=== PATIENT | female | born 1995 | race American Indian/Alaskan Native ===

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

== ENCOUNTER 2017-01-15 04:12 | Emergency (ER) | payer MEDICAID, OTHER ==
[2017-01-15] MEDS ORDERED: MOTRIN PO ONE (08:26)
--- NOTE | 2017-01-15 08:29 | Emergency Department Report ---
- General Chief Complaint: Upper Respiratory Infection Stated Complaint: FLU SX Time Seen by Provider: 01/15/17 07:40 Source: patient Mode of arrival: Ambulatory Limitations: No Limitations - History of Present Illness Initial Comments: Patient presents with flulike symptoms times one day including cough, congestion , fever subjective, body aches, headache. Denies vomiting, diarrhea but does admit to nausea. She has been around sick contacts that test positive for flu B. Denies shortness of breath, chest pain. MD Complaint: fever, cough, nasal congestion -: Sudden Severity: severe Severity scale (0 -10): 10 Quality: aching Consistency: constant Improves With: nothing Context: sick contacts Associated Symptoms: fever, chills, myalgias, headache, nasal congestion, cough , nausea - Related Data Previous Rx's Medication Instructions Recorded Last Taken Type Acyclovir [Zovirax Tab] 400 mg PO Q8H #30 tab 12/16/16 Unknown Rx Acyclovir/Hydrocortisone [Xerese 1 applicatio TP 5XD #1 tube 12/16/16 Unknown Rx 5%-1% Cream] Diphenhydramine HCl [Benadryl 25 mg PO DAILY #25 tablet 12/16/16 Unknown Rx Allergy TAB] Dextromethorphan HBr [Tussin Cough] 15 mg PO TID #60 liquid 01/15/17 Unknown Rx Ibuprofen [Motrin 800 MG tab] 800 mg PO Q8HR PRN #20 tablet 01/15/17 Unknown Rx Ondansetron [Zofran Odt] 4 mg PO BID #10 tab.rapdis 01/15/17 Unknown Rx Allergies Allergy/AdvReac Type Severity Reaction Status Date / Time acyclovir Allergy Rash Verified 12/04/16 14:02 ED Review of Systems ROS: Stated complaint: FLU SX Other details as noted in HPI Constitutional: denies: chills, fever Eyes: denies: eye pain, eye discharge, vision change ENT: congestion Respiratory: cough Cardiovascular: denies: chest pain, palpitations Gastrointestinal: nausea. denies: abdominal pain, diarrhea Genitourinary: denies: urgency, dysuria, discharge Musculoskeletal: myalgia. denies: back pain, joint swelling, arthralgia Skin: denies: rash, lesions Neurological: headache. denies: weakness, paresthesias Psychiatric: denies: anxiety, depression ED Past Medical Hx - Past Medical History Previous Medical History?: No - Surgical History Past Surgical History?: No - Social History Smoking Status: Current Every Day Smoker Substance Use Type: Alcohol - Medications Home Medications: Home Medications Medication Instructions Recorded Confirmed Last Taken Type Acyclovir [Zovirax Tab] 400 mg PO Q8H #30 tab 12/16/16 Unknown Rx Acyclovir/Hydrocortisone [Xerese 1 applicatio TP 5XD #1 tube 12/16/16 Unknown Rx 5%-1% Cream] Diphenhydramine HCl [Benadryl 25 mg PO DAILY #25 tablet 12/16/16 Unknown Rx Allergy TAB] Dextromethorphan HBr [Tussin Cough] 15 mg PO TID #60 liquid 01/15/17 Unknown Rx Ibuprofen [Motrin 800 MG tab] 800 mg PO Q8HR PRN #20 tablet 01/15/17 Unknown Rx Ondansetron [Zofran Odt] 4 mg PO BID #10 tab.rapdis 01/15/17 Unknown Rx ED Physical Exam - General Limitations: No Limitations General appearance: alert, in no apparent distress - Head Head exam: Present: atraumatic, normocephalic - Eye Eye exam: Present: normal appearance, PERRL - ENT ENT exam: Present: mucous membranes moist, TM's normal bilaterally - Expanded ENT Exam Expanded Mouth exam: Present: normal external inspection Teeth exam: Present: normal inspection Throat exam: Positive: normal inspection - Neck Neck exam: Present: normal inspection, full ROM. Absent: tenderness, lymphadenopathy - Respiratory Respiratory exam: Present: normal lung sounds bilaterally. Absent: respiratory distress, wheezes, rales, rhonchi, stridor - Cardiovascular Cardiovascular Exam: Present: regular rate, normal rhythm. Absent: systolic murmur, diastolic murmur, rubs, gallop - GI/Abdominal GI/Abdominal exam: Present: soft, normal bowel sounds. Absent: tenderness - Neurological Exam Neurological exam: Present: alert, oriented X3 - Psychiatric Psychiatric exam: Present: normal affect, normal mood - Skin Skin exam: Present: warm, dry, intact, normal color. Absent: rash ED Course Vital Signs 01/15/17 01/15/17 06:50 07:09 Temperature 98.7 F 98.8 F Pulse Rate 57 L 94 H Respiratory 18 Rate Blood Pressure 124/76 Blood Pressure 115/74 [Right] O2 Sat by Pulse 96 100 Oximetry - Reevaluation(s) Reevaluation #1: 01/15/17 08:29 Patient presents with flulike symptoms. Ibuprofen 800 mg given for body aches. Awaiting flu swab results. ED Medical Decision Making - Medical Decision Making Patient presents with flulike symptoms, ibuprofen 800 mg given for body aches. Flu swab returned negative. Diagnosis is viral syndrome. I will give her Zofran 4 mg twice a day for nausea, dextromethorphan for her cough, and ibuprofen for body aches. - Differential Diagnosis flu, URI, UTI, pneumonia Critical Care Time: No Critical care attestation.: If time is entered above; I have spent that time in minutes in the direct care of this critically ill patient, excluding procedure time. ED Disposition Clinical Impression: Viral syndrome, Cough, Body aches, Nausea Disposition: DISCHARGED TO HOME OR SELFCARE Is pt being admited?: No Does the pt Need Aspirin: No Condition: Stable Instructions: Viral Syndrome (ED), Dextromethorphan/Guaifenesin/Phenylephrine ( By mouth), Cold Symptoms (ED), Acute Nausea and Vomiting (ED) Additional Instructions: Return to the ED if nausea/vomiting uncontrolled with medications, symptoms worsen. Prescriptions: Dextromethorphan HBr [Tussin Cough] 15 mg PO TID #60 liquid Ibuprofen [Motrin 800 MG tab] 800 mg PO Q8HR PRN #20 tablet PRN Reason: body aches Ondansetron [Zofran Odt] 4 mg PO BID #10 tab.rapdis Referrals: PRIMARY CARE, [Primary Care Provider] - 3-5 Days Forms: Work/School Release Form(ED) Time of Disposition: 08:49
[2017-01-15 09:12] VITALS: BP 96/58
== END 2017-01-15 09:11 | disposition home or self-care (01) ==
LOC: ED 04:12
DX: B34.9 Viral infection, unspecified (principal); M79.1 Myalgia; R11.0 Nausea; R05 Cough; F17.200 Nicotine dependence, unspecified, uncomplicated; Z88.8 Allergy status to other drugs, medicaments and biological substances
CPT/HCPCS: 87400; 99282

== ENCOUNTER 2017-01-16 14:14 | Emergency (ER) | payer MEDICAID, OTHER ==
[2017-01-16 16:48] LABS: Hematocrit 40.1 % (30.3-42.9); Hemoglobin 13.2 gm/dl (10.1-14.3); Mean Corpuscular HGB Conc 33 % (30-34); Mean Corpuscular Hemoglobin 29 pg (28-32); Mean Corpuscular Volume 87 fl (79-97); Platelet Count 206 K/mm3 (140-440); Red Blood Count 4.62 M/mm3 (3.65-5.03); Red Cell Distribution Width 12.8 % (13.2-15.2)
[2017-01-16 17:01] LABS: Anion Gap 19 mmol/L; Blood Urea Nitrogen 7 mg/dL (7-17); Calcium 8.8 mg/dL (8.4-10.2); Carbon Dioxide 23 mmol/L (22-30); Chloride 98.7 mmol/L (98-107); Glucose 119 mg/dL (65-100); Potassium 3.6 mmol/L (3.6-5.0); Sodium 137 mmol/L (137-145)
[2017-01-16 18:28] LABS: Blastocytes % (Manual) 0 %
[2017-01-16 18:29] LABS: Basophils % (Manual) 0 % (0.0-1.8); Eosinophils % (Manual) 0 % (0.0-4.3)
[2017-01-16 18:30] LABS: Diff Status Complete; Large Platelets 1+; Platelet Estimate Consistent w Auto; RBC Morphology Normal
[2017-01-16 20:46] VITALS: BP 113/62
--- NOTE | 2017-01-16 22:00 | Emergency Department Report ---
HPI - General Chief Complaint: Fever Time Seen by Provider: 01/16/17 20:52 - HPI HPI: 21-year-old female presents today complaining of flulike symptoms 2 days. Patient was seen here yesterday and was negative for flu. She was sent home on Robitussin, Zofran and ibuprofen. Patient states that the medication is not working. Also complaining of headache, nausea, vomiting, body aches and cough associated chest pain. Tmax = 101.6. Denies shortness of breath. She states that she had been around sick contacts that tested positive for influenza B. ED Past Medical Hx - Past Medical History Previous Medical History?: No - Surgical History Past Surgical History?: No - Social History Smoking Status: Current Every Day Smoker - Medications Home Medications: Home Medications Medication Instructions Recorded Confirmed Last Taken Type Acyclovir [Zovirax Tab] 400 mg PO Q8H #30 tab 12/16/16 Unknown Rx Acyclovir/Hydrocortisone [Xerese 1 applicatio TP 5XD #1 tube 12/16/16 Unknown Rx 5%-1% Cream] Diphenhydramine HCl [Benadryl 25 mg PO DAILY #25 tablet 12/16/16 Unknown Rx Allergy TAB] Dextromethorphan HBr [Tussin Cough] 15 mg PO TID #60 liquid 01/15/17 Unknown Rx Ibuprofen [Motrin 800 MG tab] 800 mg PO Q8HR PRN #20 tablet 01/15/17 Unknown Rx Ondansetron [Zofran Odt] 4 mg PO BID #10 tab.rapdis 01/15/17 Unknown Rx Fluticasone [Flonase] 1 spray NS QDAY #1 bottle 01/16/17 Unknown Rx Promethazine /Codeine 5 ml PO Q6H PRN #100 ml 01/16/17 Unknown Rx [Phenergan/Codeine 6.25-10 mg/5 ml] ED Review of Systems ROS: Stated complaint: FLU SYMPTOMS Other details as noted in HPI Constitutional: fever. denies: chills, malaise Eyes: denies: eye pain ENT: congestion. denies: ear pain, throat pain Respiratory: cough. denies: shortness of breath, wheezing Cardiovascular: chest pain. denies: palpitations Endocrine: no symptoms reported Gastrointestinal: nausea, vomiting. denies: abdominal pain Neurological: headache. denies: weakness Physical Exam - Physical Exam Vital Signs: Vital Signs 01/16/17 01/16/17 15:55 20:45 Temperature 101.6 F H 99.8 F H Pulse Rate 116 H 99 H Respiratory 18 16 Rate Blood Pressure 123/76 Blood Pressure 113/62 [Right] O2 Sat by Pulse 100 98 Oximetry Physical Exam: GENERAL: The patient is well-developed and well-nourished. Patient is in NAD. HEAD: Normocephalic. Atraumatic. EYES: PERRL. EARS: External auditory canals and tympanic membranes clear; hearing grossly intact. NOSE: Normal nasal mucosa with no nasal discharge. THROAT: No erythema, swelling or exudates. NECK: Supple, nontender, without lymphadenopathy. CHEST/LUNGS: Clear to auscultation throughout. HEART/CARDIOVASCULAR: Regular rate and rhythm. ABDOMEN: Abdomen is soft, nontender. No guarding or rebound tenderness. EXTREMITIES: Peripheral pulses intact. Capillary refill less than 2 seconds. NEURO: Alert and oriented 3, normal gait, fluid speech, EOMs intact, normal facial sensation, strength exam 5/5 upper and lower extremities, GCS equals 15 ED Course Vital Signs 01/16/17 01/16/17 15:55 20:45 Temperature 101.6 F H 99.8 F H Pulse Rate 116 H 99 H Respiratory 18 16 Rate Blood Pressure 123/76 Blood Pressure 113/62 [Right] O2 Sat by Pulse 100 98 Oximetry ED Medical Decision Making - Lab Data Result diagrams: 01/16/17 16:25 01/16/17 16:25 Vital Signs 01/16/17 01/16/17 01/17/17 15:55 20:45 00:19 Temperature 101.6 F H 99.8 F H 99.7 F H Pulse Rate 116 H 99 H 99 H Respiratory 18 16 Rate Blood Pressure 123/76 Blood Pressure 113/62 [Right] O2 Sat by Pulse 100 98 Oximetry Lab Results 01/16/17 01/16/17 Range/Units 16:25 16:25 WBC 5.0 (4.5-11.0) K/mm3 RBC 4.62 (3.65-5.03) M/mm3 Hgb 13.2 (10.1-14.3) gm/dl Hct 40.1 (30.3-42.9) % MCV 87 (79-97) fl MCH 29 (28-32) pg MCHC 33 (30-34) % RDW 12.8 L (13.2-15.2) % Plt Count 206 (140-440) K/mm3 Add Manual Diff Complete Total Counted 100 Seg Neuts % (Manual) 69.0 (40.0-70.0) % Band Neutrophils % 1.0 % Lymphocytes % (Manual) 18.0 (13.4-35.0) % Reactive Lymphs % (Man) 0 % Monocytes % (Manual) 12.0 H (0.0-7.3) % Eosinophils % (Manual) 0 (0.0-4.3) % Basophils % (Manual) 0 (0.0-1.8) % Metamyelocytes % 0 % Myelocytes % 0 % Promyelocytes % 0 % Blast Cells % 0 % Nucleated RBC % Not Reportable Seg Neutrophils # Man 3.5 (1.8-7.7) K/mm3 Band Neutrophils # 0.1 K/mm3 Lymphocytes # (Manual) 0.9 L (1.2-5.4) K/mm3 Abs React Lymphs (Man) 0.0 K/mm3 Monocytes # (Manual) 0.6 (0.0-0.8) K/mm3 Eosinophils # (Manual) 0.0 (0.0-0.4) K/mm3 Basophils # (Manual) 0.0 (0.0-0.1) K/mm3 Metamyelocytes # 0.0 K/mm3 Myelocytes # 0.0 K/mm3 Promyelocytes # 0.0 K/mm3 Blast Cells # 0.0 K/mm3 WBC Morphology Not Reportable Hypersegmented Neuts Not Reportable Hyposegmented Neuts Not Reportable Hypogranular Neuts Not Reportable Smudge Cells Not Reportable Toxic Granulation Not Reportable Toxic Vacuolation Not Reportable Dohle Bodies Not Reportable Pelger-Huet Anomaly Not Reportable Shelly Rods Not Reportable Platelet Estimate Consistent w auto Clumped Platelets Not Reportable Plt Clumps, EDTA Not Reportable Large Platelets 1+ Giant Platelets Not Reportable Platelet Satelliting Not Reportable Plt Morphology Comment Not Reportable RBC Morphology Normal Dimorphic RBCs Not Reportable Polychromasia Not Reportable Hypochromasia Not Reportable Poikilocytosis Not Reportable Anisocytosis Not Reportable Microcytosis Not Reportable Macrocytosis Not Reportable Spherocytes Not Reportable Pappenheimer Bodies Not Reportable Sickle Cells Not Reportable Target Cells Not Reportable Tear Drop Cells Not Reportable Ovalocytes Not Reportable Helmet Cells Not Reportable [place] Bodies Not Reportable Kerkhoven Rings Not Reportable Buck Cells Not Reportable Bite Cells Not Reportable Crenated Cell Not Reportable Elliptocytes Not Reportable Acanthocytes (Spur) Not Reportable Rouleaux Not Reportable Hemoglobin C Crystals Not Reportable Schistocytes Not Reportable Malaria parasites Not Reportable Vincent Bodies Not Reportable Hem Pathologist Commnt No Sodium 137 (137-145) mmol/L Potassium 3.6 (3.6-5.0) mmol/L Chloride 98.7 (98-107) mmol/L Carbon Dioxide 23 (22-30) mmol/L Anion Gap 19 mmol/L BUN 7 (7-17) mg/dL Creatinine 0.7 (0.7-1.2) mg/dL Estimated GFR > 60 ml/min BUN/Creatinine Ratio 10.00 % Glucose 119 H (65-100) mg/dL Calcium 8.8 (8.4-10.2) mg/dL - Radiology Data Radiology results: report reviewed PROCEDURE: XR CHEST ROUTINE 2V TECHNIQUE: PA and lateral chest radiographs were obtained. CPT 68955 HISTORY: cough associated chest pain COMPARISON: No prior studies are available for comparison. FINDINGS: Heart: Normal contour. Mediastinum/Vessels: Normal contour. Lungs/Pleural space: No infiltrate, effusion, or pneumothorax. Bony thorax: No acute osseous abnormality. Other: IMPRESSION: No pulmonary infiltrates are identified. - Medical Decision Making 21-year-old female presents today with flulike symptoms 2 days. Her rapid flu test is negative. Her chest x-ray results reveal no acute cardiopulmonary process. Her lab results are within normal limits. Patient is in no acute distress at this time. She will be discharged home and is encouraged to follow up with a primary care provider. She is recommended to alternate Tylenol and Motrin for better fever control. She will be sent home on promethazine/codeine and Flonase and is encouraged to return to the emergency room for any worsening symptoms. Critical care attestation.: If time is entered above; I have spent that time in minutes in the direct care of this critically ill patient, excluding procedure time. ED Disposition Clinical Impression: Viral syndrome Upper respiratory infection Qualifiers: URI type: unspecified URI Qualified Code(s): J06.9 - Acute upper respiratory infection, unspecified Disposition: DISCHARGED TO HOME OR SELFCARE Is pt being admited?: No Does the pt Need Aspirin: No Condition: Stable Instructions: Upper Respiratory Infection (ED), Viral Syndrome (ED), Cold Symptoms (ED) Additional Instructions: Follow-up with primary care provider. Return to the emergency department if symptoms worsen. Prescriptions: Fluticasone [Flonase] 1 spray NS QDAY #1 bottle Promethazine /Codeine [Phenergan/Codeine 6.25-10 mg/5 ml] 5 ml PO Q6H PRN #100 ml PRN Reason: cough Referrals: PRIMARY CARE, [Primary Care Provider] - 3-5 Days [facility] [Outside] - 3-5 Days Forms: Work/School Release Form(ED) Time of Disposition: 23:30
--- NOTE | 2017-01-16 23:16 | XRay Report ---
FINAL REPORT PROCEDURE: XR CHEST ROUTINE 2V TECHNIQUE: PA and lateral chest radiographs were obtained. CPT 34159 HISTORY: cough associated chest pain COMPARISON: No prior studies are available for comparison. FINDINGS: Heart: Normal contour. Mediastinum/Vessels: Normal contour. Lungs/Pleural space: No infiltrate, effusion, or pneumothorax. Bony thorax: No acute osseous abnormality. Other: IMPRESSION: No pulmonary infiltrates are identified.
[2017-01-16] MEDS ORDERED: TYLENOL PO ONE (23:28)
== END 2017-01-17 00:19 | disposition home or self-care (01) ==
LOC: ED 14:14
DX: J06.9 Acute upper respiratory infection, unspecified (principal); B34.9 Viral infection, unspecified; F17.200 Nicotine dependence, unspecified, uncomplicated
CPT/HCPCS: 36415; 71020; 80048; 85007; 85025; 99284